=== PATIENT | female | born 1980 | race Caucasian/White ===

== ENCOUNTER 2018-10-29 01:03 | Observation (INO) | payer SELFPAY ==
[2018-10-29] MEDS: IBUPROFEN 800 MG TAB PO (03:01)
[2018-10-29 03:35] LABS: URINE BLOOD (Dip) POC Negative (NEGATIVE); URINE GLUCOSE (Dip) POC Negative (NEGATIVE); URINE KETONES (Dip) POC 4+ (NEGATIVE); URINE LEUKOCYTE EST (Dip) POC Negative (NEGATIVE); URINE NITRITE (Dip) POC Negative (NEGATIVE); URINE TOTAL PROTEIN POC Negative (NEGATIVE)
[2018-10-29 03:53] LABS: ADD MAN DIFF? NO
[2018-10-29 04:12] LABS: INR 0.87; PARTIAL THROMBOPLASTIN TIME 28.4 Sec (23.0-35.0); PROTIME 11.9 Sec (11.9-14.9); PT RATIO 0.9
[2018-10-29 04:34] LABS: WHITE BLOOD COUNT 10.4 10^3/ul (4.8-10.8)
[2018-10-29 04:34] LABS: BASOPHIL # 0.1 10^3/ul (0.0-0.1); BASOPHILS % 0.5 % (0.0-2.0); EOSINOPHILS # 0.1 10^3/ul (0.0-0.5); HEMATOCRIT 37.6 % (37.0-47.0); HEMOGLOBIN 12.4 g/dl (12.0-16.0); LYMPHOCYTES # 1.4 10^3/ul (0.8-2.9); LYMPHOCYTES % 13.5 % (15.0-51.0); MEAN CORPUSCULAR HEMOGLOBIN 30.7 pg (29.0-33.0); MEAN CORPUSCULAR VOLUME 93.1 fl (82.0-101.0); MEAN PLATELET VOLUME 11.3 fl (7.4-10.4); MONOCYTE # 0.8 10^3/ul (0.3-0.9); MONOCYTES % 7.8 % (0.0-11.0); NEUTROPHIL # 7.9 10^3/ul (1.6-7.5); NEUTROPHILS % 76.5 % (39.0-77.0); PLATELET COUNT 136 10^3/UL (140-415); RED BLOOD COUNT 4.04 10^6/ul (4.20-5.40); RED CELL DISTRIBUTION WIDTH 12.4 % (11.5-14.5)
[2018-10-29] MEDS ORDERED: ONDANSETRON 4 MG INJ IV ×2 (05:00→05:30)
[2018-10-29] MEDS ORDERED: ACETAMINOPHEN 325 MG TAB PO ×2 (05:00→05:30)
[2018-10-29] MEDS ORDERED: DOCUSATE SODIUM 100 MG CAP PO (05:30)
[2018-10-29] MEDS ORDERED: NACL 0.9% 3 ML SYG IV (05:30)
[2018-10-29] MEDS ORDERED: BISACODYL (EC) 5 MG TAB PO (05:30)
[2018-10-29 06:01] LABS: MAGNESIUM 1.9 mg/dl (1.7-2.5)
[2018-10-29] MEDS ORDERED: ENOXAPARIN 100 MG/ML SYG SC (09:00)
[2018-10-29] MEDS: ENOXAPARIN 80 MG/0.8 ML SYG SC ×2 (09:27→21:43)
[2018-10-30 00:04] LABS: URINE BLOOD (Dip) POC Negative (NEGATIVE); URINE GLUCOSE (Dip) POC Negative (NEGATIVE); URINE KETONES (Dip) POC 4+ (NEGATIVE); URINE LEUKOCYTE EST (Dip) POC Negative (NEGATIVE); URINE NITRITE (Dip) POC Negative (NEGATIVE); URINE TOTAL PROTEIN POC Negative (NEGATIVE)
[2018-10-30 05:06] LABS: ADD MAN DIFF? NO
[2018-10-30 05:16] LABS: BASOPHILS % 0.5 % (0.0-2.0); EOSINOPHILS # 0.1 10^3/ul (0.0-0.5); EOSINOPHILS % 1.3 % (0.0-7.0); HEMATOCRIT 36.2 % (37.0-47.0); LYMPHOCYTES # 1.5 10^3/ul (0.8-2.9); LYMPHOCYTES % 19.3 % (15.0-51.0); MEAN CORPUSCULAR HEMOGLOBIN 30.8 pg (29.0-33.0); MEAN CORPUSCULAR HGB CONC 33.1 g/dl (32.0-37.0); MEAN CORPUSCULAR VOLUME 92.8 fl (82.0-101.0); MEAN PLATELET VOLUME 10.9 fl (7.4-10.4); MONOCYTE # 0.7 10^3/ul (0.3-0.9); MONOCYTES % 8.5 % (0.0-11.0); NEUTROPHIL # 5.5 10^3/ul (1.6-7.5); NEUTROPHILS % 69.9 % (39.0-77.0); PLATELET COUNT 131 10^3/UL (140-415); RED CELL DISTRIBUTION WIDTH 12.5 % (11.5-14.5)
[2018-10-30 05:16] LABS: WHITE BLOOD COUNT 7.9 10^3/ul (4.8-10.8)
[2018-10-30 05:52] LABS: POSITIVE DIFF @See below
[2018-10-30 06:02] LABS: ALANINE AMINOTRANSFERASE 19 IU/L (13-69); ALBUMIN 3.1 g/dl (3.3-4.9); ALBUMIN/GLOBULIN RATIO 1.24; ALKALINE PHOSPHATASE 47 IU/L (42-121); ANION GAP 7 (5-13); ASPARTATE AMINO TRANSFERASE 13 IU/L (15-46); BILIRUBIN,INDIRECT 0.4 mg/dl (0-1.1); BILIRUBIN,TOTAL 0.4 mg/dl (0.2-1.3); BLOOD UREA NITROGEN 9 mg/dl (7-20); CALCIUM 8.3 mg/dl (8.4-10.2); CARBON DIOXIDE 25 mmol/L (21-31); CHLORIDE 105 mmol/L (97-110); CREATININE 0.59 mg/dl (0.44-1.00); Estimated GFR > 60 mL/min (>60); GLUCOSE 92 mg/dl (70-220); POTASSIUM 3.8 mmol/L (3.5-5.1); SODIUM 137 mmol/L (135-144); TOTAL PROTEIN 5.6 g/dl (6.1-8.1)
[2018-10-30 09:39] LABS: HEMOGLOBIN A1C 4.7 % (0-5.9)
[2018-10-30] MEDS: ENOXAPARIN 80 MG/0.8 ML SYG SC (09:42)
[2018-11-01 16:11] LABS: PROTEIN C 84 % normal (70-180)
[2018-11-01 20:03] LABS: HOMOCYSTEINE - CARDIOVASCULAR 11.5 umol/L (<10.4)
[2018-11-01 20:48] LABS: ANTI-THROMBIN III 27 mg/dL (19-30)
== END 2018-10-30 14:19 | disposition home or self-care (01) ==
LOC: FTE 01:03 → PP2 04:49
PROVIDERS: Family Medicine
DX: O22.31 Deep phlebothrombosis in pregnancy, first trimester (principal); I82.411 Acute embolism and thrombosis of right femoral vein; I82.431 Acute embolism and thrombosis of right popliteal vein; Z3A.01 Less than 8 weeks gestation of pregnancy
CPT/HCPCS: 36415; 76801; 76817; 80053; 81003; 81025; 81240; 83036; 83090; 83735; 83890; 84443; 84702; 85025; 85300; 85302; 85305; 85610; 85613; 85730; 93971; 99217; 99285-25; G0378

== ENCOUNTER 2019-06-04 17:35 | Inpatient (IN) | payer OTHER ==
[2019-06-04] MEDS ORDERED: MISOPROSTOL 200 MCG TAB PR (18:30)
[2019-06-04] MEDS ORDERED: LIDOCAINE 1% (MPF) 30 ML INJ INJ (18:30)
[2019-06-04] MEDS ORDERED: BUTORPHANOL 2 MG INJ IV (18:30)
[2019-06-04] MEDS ORDERED: METHYLERGONOVINE 0.2 MG INJ IM (18:30)
[2019-06-04] MEDS ORDERED: IBUPROFEN 600 MG TAB PO (18:30)
[2019-06-04] MEDS ORDERED: OXYTOCIN 30 UNITS/LR 500 ML IV ×3 (18:30)
[2019-06-04] MEDS ORDERED: CARBOPROST 250 MCG INJ IM (18:30)
[2019-06-04 19:17] LABS: ADD MAN DIFF? NO
[2019-06-04 19:22] LABS: BASOPHILS % 0.4 % (0.0-2.0); EOSINOPHILS % 0.4 % (0.0-7.0); HEMATOCRIT 38.2 % (37.0-47.0); HEMOGLOBIN 12.8 g/dl (12.0-16.0); LYMPHOCYTES # 1.6 10^3/ul (0.8-2.9); LYMPHOCYTES % 19.3 % (15.0-51.0); MEAN CORPUSCULAR HEMOGLOBIN 31.8 pg (29.0-33.0); MEAN CORPUSCULAR HGB CONC 33.5 g/dl (32.0-37.0); MEAN PLATELET VOLUME 11.7 fl (7.4-10.4); MONOCYTE # 0.4 10^3/ul (0.3-0.9); MONOCYTES % 5.3 % (0.0-11.0); NEUTROPHIL # 6.2 10^3/ul (1.6-7.5); NEUTROPHILS % 74.2 % (39.0-77.0); PLATELET COUNT 104 10^3/UL (140-415); RED BLOOD COUNT 4.02 10^6/ul (4.20-5.40); RED CELL DISTRIBUTION WIDTH 13.9 % (11.5-14.5)
[2019-06-04 19:22] LABS: WHITE BLOOD COUNT 8.3 10^3/ul (4.8-10.8)
[2019-06-04 19:39] LABS: ALANINE AMINOTRANSFERASE 25 IU/L (13-69); ALBUMIN/GLOBULIN RATIO 0.96; ALKALINE PHOSPHATASE 166 IU/L (42-121); ANION GAP 7 (5-13); ASPARTATE AMINO TRANSFERASE 24 IU/L (15-46); BILIRUBIN,INDIRECT 0.2 mg/dl (0-1.1); BILIRUBIN,TOTAL 0.2 mg/dl (0.2-1.3); BLOOD UREA NITROGEN 16 mg/dl (7-20); CALCIUM 8.5 mg/dl (8.4-10.2); CARBON DIOXIDE 20 mmol/L (21-31); CHLORIDE 111 mmol/L (97-110); CREATININE 1.03 mg/dl (0.44-1.00); Estimated GFR 60 mL/min (>60); GLUCOSE 130 mg/dl (70-220); POTASSIUM 3.8 mmol/L (3.5-5.1); SODIUM 138 mmol/L (135-144); TOTAL PROTEIN 6.1 g/dl (6.1-8.1)
[2019-06-04 19:40] LABS: INR 0.83; PROTIME 11.5 Sec (11.9-14.9); PT RATIO 0.9
[2019-06-04 19:41] LABS: PARTIAL THROMBOPLASTIN TIME 31.2 Sec (23.0-35.0)
[2019-06-04 19:41] LABS: PLATELET COUNT 104 10^3/UL (140-415)
[2019-06-04 19:42] LABS: INR 0.82; PARTIAL THROMBOPLASTIN TIME 31.1 Sec (23.0-35.0); PROTIME 11.4 Sec (11.9-14.9); PT RATIO 0.9
[2019-06-04 19:43] LABS: THROMBIN TIME 15.9 SEC (13.8-19.1)
[2019-06-04] MEDS ORDERED: CLINDAMYCIN 900 MG/D5W (PMX) 50 ML IVPB ×2 (20:31→21:00)
[2019-06-04] MEDS: MISOPROSTOL 50 MCG CAPSULE PO (20:40)
[2019-06-04] MEDS: LACTATED RINGER'S 1,000 ML IV (20:41)
[2019-06-04] MEDS: CLINDAMYCIN 900 MG/D5W (PMX) 50 ML IVPB (21:07)
[2019-06-04 22:01] LABS: HEPATITIS B SURFACE ANTIBODY NEGATIVE (NEGATIVE)
[2019-06-05] MEDS: MISOPROSTOL 50 MCG CAPSULE PO ×5 (00:32→20:15)
[2019-06-05] MEDS: CLINDAMYCIN 900 MG/D5W (PMX) 50 ML IVPB ×3 (04:30→20:15)
[2019-06-05] MEDS: LACTATED RINGER'S 1,000 ML IV ×2 (05:58→13:48)
[2019-06-05 06:38] LABS: ADD MAN DIFF? NO
[2019-06-05 06:47] LABS: ABNORMAL IP MESSAGE 1; BASOPHILS % 0.3 % (0.0-2.0); EOSINOPHILS # 0.1 10^3/ul (0.0-0.5); EOSINOPHILS % 0.8 % (0.0-7.0); HEMATOCRIT 38.6 % (37.0-47.0); HEMOGLOBIN 12.6 g/dl (12.0-16.0); LYMPHOCYTES # 1.7 10^3/ul (0.8-2.9); LYMPHOCYTES % 28.4 % (15.0-51.0); MEAN CORPUSCULAR HEMOGLOBIN 31.3 pg (29.0-33.0); MEAN CORPUSCULAR HGB CONC 32.6 g/dl (32.0-37.0); MEAN PLATELET VOLUME 12.2 fl (7.4-10.4); MONOCYTE # 0.5 10^3/ul (0.3-0.9); MONOCYTES % 7.9 % (0.0-11.0); NEUTROPHIL # 3.7 10^3/ul (1.6-7.5); NEUTROPHILS % 62.3 % (39.0-77.0); PLATELET COUNT 79 10^3/UL (140-415); RED BLOOD COUNT 4.02 10^6/ul (4.20-5.40); RED CELL DISTRIBUTION WIDTH 13.9 % (11.5-14.5)
[2019-06-05 06:48] LABS: POSITIVE DIFF @See below
[2019-06-05 14:56] LABS: RAPID PLASMA REAGIN NONREACTIVE (NR)
[2019-06-05] MEDS ORDERED: CARBOPROST 250 MCG INJ IM ×2 (15:00→20:00)
[2019-06-05] MEDS ORDERED: OXYTOCIN 30 UNITS/LR 500 ML IV ×3 (15:00→20:00)
[2019-06-05] MEDS ORDERED: MISOPROSTOL 200 MCG TAB PR ×2 (15:00→20:00)
[2019-06-05] MEDS ORDERED: METHYLERGONOVINE 0.2 MG INJ IM ×2 (15:00→20:00)
[2019-06-05] MEDS ORDERED: PHENYLephrine (100 MCG/ML) 10ML SYG (18:00)
[2019-06-05] MEDS ORDERED: DEXAMETHASONE 4 MG/ML 1 ML INJ (18:02)
[2019-06-05] MEDS ORDERED: ONDANSETRON 4 MG INJ (18:03)
[2019-06-05] MEDS ORDERED: morphine SULFATE/PF (10 MG/10 ML) INJ (18:04)
[2019-06-05] MEDS ORDERED: FENTAnyl 50 MCG/ML VIAL (18:04)
[2019-06-05] MEDS ORDERED: HYDROmorphONE 0.5 MG/0.5 ML SYG IV ×2 (18:30)
[2019-06-05] MEDS ORDERED: ONDANSETRON 4 MG INJ IV (18:30)
[2019-06-05] MEDS ORDERED: ZOLPIDEM 5 MG TAB PO (18:30)
[2019-06-05] MEDS ORDERED: NALOXONE (0.4 MG/ML) INJ IV (18:30)
[2019-06-05] MEDS ORDERED: LANOLIN HPA 1 PKT TOP (20:00)
[2019-06-05] MEDS ORDERED: METHYLERGONOVINE 0.2 MG TAB PO (20:00)
[2019-06-05] MEDS: DIPHENHYDRAMINE 50 MG INJ IV (20:45)
[2019-06-05] MEDS: SENNA/DOCUSATE NA (8.6MG/50MG) TAB PO (21:00)
[2019-06-05] MEDS: OXYTOCIN 30 UNITS/LR 500 ML IV (23:20)
[2019-06-05] MEDS: KETOROLAC 30 MG INJ IV (23:25)
[2019-06-06] MEDS: LACTATED RINGER'S 1,000 ML IV (05:51)
[2019-06-06 07:03] LABS: ADD MAN DIFF? NO
[2019-06-06 07:08] LABS: WHITE BLOOD COUNT 10.6 10^3/ul (4.8-10.8)
[2019-06-06 07:08] LABS: ABNORMAL IP MESSAGE 1; BASOPHILS % 0.2 % (0.0-2.0); HEMOGLOBIN 12.6 g/dl (12.0-16.0); LYMPHOCYTES # 1.3 10^3/ul (0.8-2.9); LYMPHOCYTES % 12.7 % (15.0-51.0); MEAN CORPUSCULAR HEMOGLOBIN 31.4 pg (29.0-33.0); MEAN CORPUSCULAR HGB CONC 33.2 g/dl (32.0-37.0); MEAN CORPUSCULAR VOLUME 94.8 fl (82.0-101.0); MEAN PLATELET VOLUME 12.4 fl (7.4-10.4); MONOCYTE # 0.7 10^3/ul (0.3-0.9); MONOCYTES % 6.4 % (0.0-11.0); NEUTROPHIL # 8.5 10^3/ul (1.6-7.5); PLATELET COUNT 87 10^3/UL (140-415); RED BLOOD COUNT 4.01 10^6/ul (4.20-5.40); RED CELL DISTRIBUTION WIDTH 13.7 % (11.5-14.5)
[2019-06-06 07:19] LABS: POSITIVE DIFF @See below
[2019-06-06 07:28] LABS: ANION GAP 4 (5-13); BLOOD UREA NITROGEN 16 mg/dl (7-20); CALCIUM 8.4 mg/dl (8.4-10.2); CARBON DIOXIDE 25 mmol/L (21-31); CHLORIDE 106 mmol/L (97-110); CREATININE 0.84 mg/dl (0.44-1.00); Estimated GFR > 60 mL/min (>60); GLUCOSE 75 mg/dl (70-220); POTASSIUM 4.3 mmol/L (3.5-5.1); SODIUM 135 mmol/L (135-144)
[2019-06-06] MEDS: SENNA/DOCUSATE NA (8.6MG/50MG) TAB PO ×2 (09:00→21:01)
[2019-06-06] MEDS ORDERED: ENOXAPARIN 80 MG/0.8 ML SYG SC ×2 (09:00→10:30)
[2019-06-06] MEDS: ENOXAPARIN 80 MG/0.8 ML SYG SC ×2 (10:25→21:00)
[2019-06-06] MEDS: KETOROLAC 30 MG INJ IV ×2 (11:23→17:22)
[2019-06-06] MEDS: HYDROCODONE/APAP (5/325) TAB PO (21:01)
[2019-06-07] MEDS: IBUPROFEN 800 MG TAB PO (00:26)
[2019-06-07] MEDS: HYDROCODONE/APAP (5/325) TAB PO ×4 (05:42→20:00)
[2019-06-07] MEDS: SENNA/DOCUSATE NA (8.6MG/50MG) TAB PO ×2 (09:38→21:04)
[2019-06-07] MEDS: ENOXAPARIN 80 MG/0.8 ML SYG SC ×2 (09:42→21:01)
[2019-06-07] MEDS: GUAIFENESIN/DM 5ML CUP PO ×2 (14:05→23:22)
[2019-06-07 16:11] LABS: HEPARIN INDUCED PLATELET AB NEGATIVE (NEGATIVE)
[2019-06-08] MEDS: HYDROCODONE/APAP (5/325) TAB PO ×4 (00:15→12:55)
[2019-06-08 06:48] LABS: ADD MAN DIFF? NO
[2019-06-08 06:52] LABS: BASOPHILS % 0.4 % (0.0-2.0); EOSINOPHILS # 0.1 10^3/ul (0.0-0.5); EOSINOPHILS % 0.6 % (0.0-7.0); HEMATOCRIT 37.1 % (37.0-47.0); HEMOGLOBIN 12.1 g/dl (12.0-16.0); LYMPHOCYTES % 21.4 % (15.0-51.0); MEAN CORPUSCULAR HEMOGLOBIN 31.8 pg (29.0-33.0); MEAN CORPUSCULAR HGB CONC 32.6 g/dl (32.0-37.0); MEAN CORPUSCULAR VOLUME 97.4 fl (82.0-101.0); MEAN PLATELET VOLUME 11.4 fl (7.4-10.4); MONOCYTE # 0.7 10^3/ul (0.3-0.9); MONOCYTES % 7.3 % (0.0-11.0); NEUTROPHIL # 6.6 10^3/ul (1.6-7.5); NEUTROPHILS % 69.6 % (39.0-77.0); PLATELET COUNT 107 10^3/UL (140-415); RED BLOOD COUNT 3.81 10^6/ul (4.20-5.40); RED CELL DISTRIBUTION WIDTH 14.3 % (11.5-14.5)
[2019-06-08 06:52] LABS: WHITE BLOOD COUNT 9.5 10^3/ul (4.8-10.8)
[2019-06-08] MEDS: SENNA/DOCUSATE NA (8.6MG/50MG) TAB PO (08:42)
[2019-06-08] MEDS: GUAIFENESIN/DM 5ML CUP PO ×2 (08:44→12:55)
[2019-06-08] MEDS: ENOXAPARIN 80 MG/0.8 ML SYG SC (08:46)
[2019-06-08] MEDS: MEASLES,MUMPS,RUBELLA VACCINE INJ SC* (08:47)
[2019-06-08] MEDS: DIPHTH/TET/ACEL PERTUSS (ADULT) 0.5 ML VIAL IM* (08:47)
== END 2019-06-08 18:23 | disposition home or self-care (01) | DRG 788 ==
LOC: L-D 17:35 → PP1 06-05 20:11
PROVIDERS: Obstetrics & Gynecology
PROC: 10D00Z1 Extraction of Products of Conception, Low, Open Approach (ICD-10-PCS; principal; 2019-06-06)
PROC: 3E033VJ Introduction of Other Hormone into Peripheral Vein, Percutaneous Approach (ICD-10-PCS; 2019-06-06)
DX: O62.0 Primary inadequate contractions (principal); O34.13 Maternal care for benign tumor of corpus uteri, third trimester; Z3A.39 39 weeks gestation of pregnancy; Z37.0 Single live birth
CPT/HCPCS: 76815; 80048; 80053; 85025; 85049; 85610; 85670; 85730; 86022; 86592; 86706; 86850; 86900; 86901; 99464

== ENCOUNTER 2019-07-09 23:00 | Emergency (ER) | payer OTHER ==
[2019-07-10] MEDS ORDERED: IBUPROFEN LIQUID (PED) 20 MG/ML CUP PO (01:59)
== END 2019-07-10 02:24 | disposition home or self-care (01) ==
LOC: FTE 23:00
DX: O90.89 Other complications of the puerperium, not elsewhere classified (principal); R19.7 Diarrhea, unspecified
CPT/HCPCS: 87045; 87075; 99283

== ENCOUNTER 2019-07-27 21:38 | Emergency (ER) | payer OTHER ==
[2019-07-28] MEDS: ENOXAPARIN 80 MG/0.8 ML SYG SC (00:30)
== END 2019-07-28 01:28 | disposition home or self-care (01) ==
LOC: FTE 07-28 01:28
DX: I82.4Z2 Acute embolism and thrombosis of unspecified deep veins of left distal lower extremity (principal); J45.909 Unspecified asthma, uncomplicated
CPT/HCPCS: 93971; 99284-25